=== PATIENT | male | born 1985 | race African-American/Black ===

== ENCOUNTER 2021-03-21 18:55 | Emergency (ER) | payer BC, OTHER ==
[~2021-03-21] VITALS: Ht 172.7 cm; Wt 90.9 kg
[~2021-03-21 18:55] MED LIST: CLIN150C16 PO; HYDR-3164 PO
[2021-03-21 19:55] VITALS: BP 131/91
== END 2021-03-21 21:00 | disposition left against medical advice (07) ==
LOC: ER 18:55
DX: M54.5 Low back pain (principal); Z53.21 Procedure and treatment not carried out due to patient leaving prior to being seen by health care provider